=== PATIENT | male | born 1960 | race Caucasian/White ===

== ENCOUNTER 2016-12-31 08:10 | Observation (INO) | payer OTHER ==
[~2016-12-31] VITALS: Ht 185.4 cm; Wt 161.8 kg
[~2016-12-31 08:10] MED LIST: ADVIL,NUPRIN,M200 MG PO; AMLODIPINE BESY10 MG PO; APPLE CIDER VI300 MG PO; APPLE CIDER VI500 MG PO; AUGMENTIN875 MG PO; AZITHROMYCIN500 M1 PO; Amoxicillin PO; Apresolin PO; Aspirin PO; BUMETANIDE1 MG PO; Bactrim,Septra DS 80 PO; CARDIZEM CD,CA120 MG PO; CARDIZEM CD,CA180 MG PO; CARDIZEM CD240 MG PO; CARTIA XT240 MG PO; Cardizem CD,Cartia XT,Tiazac PO; Cardizem CD,LA,Cartia,Tiazac,Dilacor,Taztia PO; DIGITEK250 MC2 PO; DIGOXIN250 MCG PO; DILTIAZEM 24HR240 MG PO; DIOVAN320 MG PO; EXFORGE 10/31 TABLET PO; FLAGYL500 MG PO; FUROSEMIDE40 MG PO; GLUCOPHAGE1000 MG PO; GLUCOVANCE 51 TABLET PO; GLYBURIDE5 MG PO; Glucophage PO; HUMALOG MI100 UNIT/5 SC; HUMALOG100 UNIT/1 SC; HYDROCHLOROTHIA25 MG PO; K-DUR10 ME2 PO; K-TAB10 MEQ PO; KLOR-CON M2020 MEQ PO; LANOXIN,DIGIT0.25 MG PO; LANTUS 3 M100 UNITS1 SC; LASIX40 MG PO; LEVEMIR FL100 UNIT/1 SC; LEVEMIR FL100 UNITS/ SC; LEVEMIR100 UNIT/2 SC; LIPITOR20 MG PO; LISINOPRIL20 MG PO; LISINOPRIL40 MG PO; LOPRESSOR100 M1 PO; Lipitor PO; Lopressor PO; METFORMIN HCL1000 MG PO; METOPROLOL SUC200 MG PO; METOPROLOL TAR100 MG PO; MICRO-K10 ME2 PO; Monopril PO; NAPROSYN250 MG PO; NAPROXEN500 M2 PO; NAPROXEN500 MG PO; NORMODYNE,TRAN200 MG PO; NORVASC10 MG PO; NORVASC5 MG PO; NOVOLOG PE100 UNITS/ SC; Norvasc PO; POTASSIUM CHLO10 ME4 PO; POTASSIUM CHLO20 ME1 PO; PRINIVIL20 MG PO; RELAFEN500 M1 PO; SIMVASTATIN20 MG PO; SSD25GM TP; TAMSULOSIN HCL0.4 MG PO; Tylenol Regular Stre PO; XARELTO20 MG PO; Xarelto PO; ZESTRIL,PRINIVI40 M1 PO
[2016-12-31 09:04] LABS: INTER. NORMALIZED RATIO 1.1; PROTHROMBIN TIME 11.6 (9.2-11.2); PTT 27.3 (25-32)
[2016-12-31 09:05] LABS: HEMATOCRIT 45.4 % (38.0-50.0); MCH 28.1 PG (29.0-34.0); MCHC 30.4 G/DL (30.0-36.0); MCV 92.5 FL (86-99); MEAN PLAT.VOLUME 11.8 uM^3 (9.0-12.4); PLATELET COUNT 271 K/uL (156-360); RBC DIS.WIDTH-CV 14.7 % (11.8-14.6); RBC DIS.WIDTH-SD 50.1 % (39-53); RED BLOOD COUNT 4.91 M/uL (4.00-5.50); WHITE BLOOD COUNT 12.2 K/uL (4.1-10.2)
[2016-12-31 09:06] LABS: AMYLASE 23 IU/L (1-118)
[2016-12-31 09:13] LABS: CHLORIDE 104 mEq/L (99-109)
[2016-12-31 09:14] LABS: POTASSIUM 4.1 mEq/L (3.7-5.4); SODIUM 144 mEq/L (136-147)
[2016-12-31 09:16] LABS: GLUCOSE 134 mg/dL (70-99)
[2016-12-31 09:17] LABS: ANION GAP 12 MEQ/L (2-14)
[2016-12-31 09:18] LABS: TOTAL BILIRUBIN 0.6 mg/dL (0.0-1.0)
[2016-12-31 09:19] LABS: ALKALINE PHOSPHATASE 95 IU/L (3-129); GFR ESTIMATE (CALCULATED) > 59 mL/min/; TROP-I INTERPRETATION NEGATIVE; TROPONIN-I 0.01 ng/mL (0.0-0.30)
[2016-12-31 09:21] LABS: UREA NITROGEN (BUN) 18 mg/dL (9-23)
[2016-12-31 09:39] LABS: LIPASE 22 U/L (1.0-51.0)
[2016-12-31 12:01] VITALS: BP 130/84
[2016-12-31] MEDS ORDERED: LEVEMIR100 UNIT/2 SC (12:17)
[2016-12-31] MEDS ORDERED: LASIX40 MG PO (12:17)
[2016-12-31 12:25] LABS: FASTING STATUS NONFASTING
[2016-12-31 13:03] LABS: HDL CHOLESTEROL 25 MG/DL (Desirable>=40); LDL CHOLESTEROL 84 mg/dL (Desirable<100); NON-HDL CHOLESTEROL 102 mg/dL (Desirable<160); TOTAL CHOLESTEROL 127 mg/dL (Desirable<200); TRIGLYCERIDES 91 MG/DL (Normal: <150)
[2016-12-31 13:26] LABS: Estimated Average Glucose 226 mg/dL (70-123)
[2016-12-31 13:31] LABS: HEMOGLOBIN A1c (GLYCOHEMOGLOB) 9.5 % HGB (Below 5.7)
[2016-12-31] MEDS ORDERED: LANTUS 3 M100 UNITS1 SC (15:02)
[2016-12-31 15:48] VITALS: BP 170/104
[2016-12-31 17:14] LABS: POINT-OF-CARE METER ID UU14162513
[2016-12-31 18:39] LABS: AMPHETAMINES QUANT VALUE 0 NG/ML; BARBITUATES QUANT VALUE 0 NG/ML; BENZODIAZEPINES QUANT VALUE 0 NG/ML; BENZODIAZEPINES, URINE SCREEN Negative (200 ng/mL); MARIJUANA QUANT VALUE 0 NG/ML; OPIATES QUANTITATIVE VALUE 0 NG/ML; PHENCYCLIDINE QUANT VALUE 0 NG/ML
[2016-12-31 19:30] VITALS: BP 120/94
[2016-12-31 22:20] LABS: POINT-OF-CARE METER ID UU14162513
[2016-12-31 23:38] VITALS: BP 118/66
[2017-01-01 03:54] VITALS: BP 136/84
[2017-01-01 08:26] LABS: POINT-OF-CARE METER ID UU13113831
[2017-01-01 08:30] VITALS: BP 163/88
[2017-01-01 11:21] VITALS: BP 135/98
[2017-01-01 12:48] LABS: POINT-OF-CARE METER ID UU13113831
[2017-01-01] MEDS ORDERED: ASPIR 8181 M1 PO (13:09)
== END 2017-01-01 15:12 | disposition home or self-care (01) ==
LOC: EME 08:10 → EDOF 09:57 → 5WEST 09:57 → EDOF 09:57 → 5WEST 11:38
PROVIDERS: Emergency Medicine; Hospitalist; Internal Medicine; Nurse Practitioner Adult Health
DX: I63.9 Cerebral infarction, unspecified (principal); T45.516A Underdosing of anticoagulants, initial encounter; Z91.128 Patient's intentional underdosing of medication regimen for other reason; I48.91 Unspecified atrial fibrillation; I10 Essential (primary) hypertension; E11.9 Type 2 diabetes mellitus without complications; Z79.01 Long term (current) use of anticoagulants; E78.5 Hyperlipidemia, unspecified; E66.9 Obesity, unspecified; Z68.42 Body mass index [BMI] 45.0-49.9, adult; I25.10 Atherosclerotic heart disease of native coronary artery without angina pectoris
CPT/HCPCS: 70450; 70551; 71010; 80053; 80061; 80306 90; 82150; 82948; 83036; 83690; 84484; 85027; 85610; 85730; 93005; 93306; 93880; 99281; 99285; G0378

== ENCOUNTER 2017-02-25 18:46 | Inpatient (IN) | payer OTHER ==
[~2017-02-25] VITALS: Ht 188 cm; Wt 159.1 kg
[~2017-02-25 18:46] MED LIST changes: +ASPIR 8181 M1 PO
[2017-02-25 19:10] LABS: BASOPHIL COUNT 0.1 K/uL (0-0.1); EOSINOPHIL (%) 1.1 % (0-5); EOSINOPHIL COUNT 0.1 K/uL (0-0.3); HEMATOCRIT 43.5 % (38.0-50.0); IMMATURE GRANULOCYTE (%) 0.7 % (0.0-0.7); IMMATURE GRANULOCYTE COUNT 0.1 K/uL; INSTRUMENT ABS NEUTROPHIL CT 8.6 K/uL; LYMPHOCYTE COUNT 1.8 K/uL (1.0-2.8); MCH 27.6 PG (29.0-34.0); MCHC 31.7 G/DL (30.0-36.0); MEAN PLAT.VOLUME 11.1 uM^3 (9.0-12.4); MONOCYTE (%) 6.2 % (3-12); MONOCYTE COUNT 0.7 K/uL (0-0.8); NEUTROPHIL (%) 75.8 % (45-76); NEUTROPHIL COUNT 8.6 K/uL (1.8-6.4); PLATELET COUNT 258 K/uL (156-360); RBC DIS.WIDTH-SD 50.4 % (39-53); WHITE BLOOD COUNT 11.3 K/uL (4.1-10.2)
[2017-02-25 19:19] LABS: CHLORIDE 106 mEq/L (99-109); POTASSIUM 3.9 mEq/L (3.7-5.4); SODIUM 141 mEq/L (136-147)
[2017-02-25 19:20] LABS: MAGNESIUM 1.9 mg/dL (1.3-2.7)
[2017-02-25 19:21] LABS: GLUCOSE 330 mg/dL (70-99)
[2017-02-25 19:22] LABS: ANION GAP 9 MEQ/L (2-14)
[2017-02-25 19:25] LABS: GFR ESTIMATE (CALCULATED) > 59 mL/min/
[2017-02-25 19:26] LABS: UREA NITROGEN (BUN) 19 mg/dL (9-23)
[2017-02-25 19:31] LABS: TROP-I INTERPRETATION NEGATIVE; TROPONIN-I 0.05 ng/mL (0.0-0.30)
[2017-02-26 00:07] VITALS: BP 138/70
[2017-02-26 02:05] VITALS: BP 158/70
[2017-02-26 03:30] VITALS: BP 148/70
[2017-02-26 08:14] VITALS: BP 145/93
[2017-02-26] MEDS ORDERED: LEVEMIR FL100 UNIT/1 SC (08:45)
[2017-02-26 11:39] VITALS: BP 128/66
== END 2017-02-26 17:12 | disposition home or self-care (01) | DRG 309 ==
LOC: EME 18:46 → 4EAST 21:00 → EDOF 21:00 → 4EAST 23:54
PROVIDERS: Emergency Medicine; Internal Medicine
DX: I48.91 Unspecified atrial fibrillation (principal); I11.0 Hypertensive heart disease with heart failure; I50.30 Unspecified diastolic (congestive) heart failure; I42.9 Cardiomyopathy, unspecified; E11.9 Type 2 diabetes mellitus without complications; M54.5 Low back pain; E66.01 Morbid (severe) obesity due to excess calories; Z68.42 Body mass index [BMI] 45.0-49.9, adult; Z91.14 Patient's other noncompliance with medication regimen; Z91.19 Patient's noncompliance with other medical treatment and regimen; Z86.73 Personal history of transient ischemic attack (TIA), and cerebral infarction without residual deficits; Z79.82 Long term (current) use of aspirin; Z79.84 Long term (current) use of oral hypoglycemic drugs
CPT/HCPCS: 71010; 80048; 82948; 83735; 83880; 84443; 84484; 85025; 93005; 99281; 99285; J1815; J3475; J7050

== ENCOUNTER 2017-02-27 18:49 | Emergency (ER) | payer OTHER ==
[~2017-02-27] VITALS: Ht 190.5 cm; Wt 156.2 kg
[2017-02-27 19:24] LABS: BASOPHIL COUNT 0.1 K/uL (0-0.1); EOSINOPHIL (%) 2.6 % (0-5); EOSINOPHIL COUNT 0.3 K/uL (0-0.3); HEMATOCRIT 45.9 % (38.0-50.0); IMMATURE GRANULOCYTE (%) 0.7 % (0.0-0.7); IMMATURE GRANULOCYTE COUNT 0.1 K/uL; INSTRUMENT ABS NEUTROPHIL CT 9.1 K/uL; LYMPHOCYTE COUNT 1.9 K/uL (1.0-2.8); MCHC 30.7 G/DL (30.0-36.0); MCV 87.8 FL (86-99); MONOCYTE (%) 5.4 % (3-12); MONOCYTE COUNT 0.7 K/uL (0-0.8); NEUTROPHIL (%) 74.9 % (45-76); NEUTROPHIL COUNT 9.1 K/uL (1.8-6.4); PLATELET COUNT 255 K/uL (156-360); RBC DIS.WIDTH-CV 15.9 % (11.8-14.6); RBC DIS.WIDTH-SD 50.7 % (39-53); RED BLOOD COUNT 5.23 M/uL (4.00-5.50); WHITE BLOOD COUNT 12.1 K/uL (4.1-10.2)
[2017-02-27 19:32] LABS: CREATININE 0.9 mg/dL (0.6-1.3)
[2017-02-27 19:43] LABS: AMYLASE 28 IU/L (1-118); CHLORIDE 105 mEq/L (99-109); POTASSIUM 4.2 mEq/L (3.7-5.4); SODIUM 139 mEq/L (136-147)
[2017-02-27 19:45] LABS: GLUCOSE 328 mg/dL (70-99)
[2017-02-27 19:46] LABS: ANION GAP 8 MEQ/L (2-14)
[2017-02-27 19:47] LABS: BASE EXCESS 3.7 mEq/L (-3 to +3); BICARBONATE 27.7 mEq/L (22-26); CARBOXY HGB 2.1 % (0-5); COMMENTS - BLOOD GASES A+C+; METHEMOGLOBIN 1.2 % (0-1.5); O2 FLOW 2 L/MIN; PCO2 39 mm Hg (35-45); PO2 67 mm Hg (80-100); SITE LR; pH 7.46 (7.35-7.45)
[2017-02-27 19:48] LABS: GFR ESTIMATE (CALCULATED) > 59 mL/min/; SERUM ETHYL ALCOHOL < 10 mg/dL
[2017-02-27 19:48] LABS: DEVICE NC; TOTAL RESP RATE 24 resp/min
[2017-02-27 19:49] LABS: UREA NITROGEN (BUN) 24 mg/dL (9-23)
[2017-02-27 19:51] LABS: LIPASE 38 U/L (1.0-51.0)
[2017-02-27 19:55] LABS: INTER. NORMALIZED RATIO 1.2; PROTHROMBIN TIME 12.1 (9.2-11.2); PTT 30.4 (25-32)
[2017-02-27 19:58] LABS: TROP-I INTERPRETATION INDETERMINATE; TROPONIN-I 0.38 ng/mL (0.0-0.30)
[2017-02-27 21:05] LABS: ADD MIUA? YES; BILIRUBIN NEGATIVE; BLOOD SMALL; COLOR STRAW ((YELLOW)); GLUCOSE (STRIP) 150; KETONES NEGATIVE; LEUKOCYTES NEGATIVE; NITRITE NEGATIVE; PROTEIN (STRIP) NEGATIVE; SPECIFIC GRAVITY 1.009 (1.000-1.030); UROBILINOGEN 0.2 MG/DL (0.2-1.0)
[2017-02-27 21:16] LABS: BACTERIA RARE /HPF; EPITHELIAL CELLS RARE /HPF; HYALINE CASTS 0-5 /LPF; MUCUS TRACE /LPF; RED BLOOD CELLS 0-5 /HPF (0-5); UCUL ADDED? NO; WHITE BLOOD CELLS 0-5 /HPF (0-5)
[2017-02-27 21:34] LABS: AMPHETAMINE NEGATIVE (500 ng/mL); BARBITURATES NEGATIVE (200 ng/mL); BENZODIAZEPINES NEGATIVE (150 ng/mL); COCAINE NEGATIVE (150 ng/mL); INTERNAL CONTROLS VALID? YES; METHADONE NEGATIVE (200 ng/mL); METHAMPHETAMINE NEGATIVE (500 ng/mL); OPIATES (MORPHINE) NEGATIVE (100 ng/mL); OXYCODONE NEGATIVE (100 ng/mL); PHENCYCLIDINE NEGATIVE (25 ng/mL); PROPOXYPHENE NEGATIVE (300 ng/mL); THC CANNABINOIDS NEGATIVE (50 ng/mL); TRICYCLIC ANTIDEPRESSANTS NEGATIVE (300 ng/mL)
[2017-02-27 22:37] VITALS: BP 171/94
== END 2017-02-27 22:42 | disposition short-term general hospital (02) ==
LOC: EME → EDBD 18:49 → EME 22:42
PROVIDERS: Emergency Medicine
DX: I63.9 Cerebral infarction, unspecified (principal); I48.91 Unspecified atrial fibrillation; J81.0 Acute pulmonary edema; E11.65 Type 2 diabetes mellitus with hyperglycemia; E66.01 Morbid (severe) obesity due to excess calories; Z79.01 Long term (current) use of anticoagulants; Z91.14 Patient's other noncompliance with medication regimen; I11.0 Hypertensive heart disease with heart failure; I50.9 Heart failure, unspecified; Z86.73 Personal history of transient ischemic attack (TIA), and cerebral infarction without residual deficits; E78.5 Hyperlipidemia, unspecified; Z79.4 Long term (current) use of insulin
CPT/HCPCS: 36600; 70450; 71010; 80047; 80048; 81003; 82150; 82803; 83605; 83690; 84484; 85025; 85610; 85730; 86900; 86901; 93005; 99281; 99285; G0480; J1940; J7050